=== PATIENT | female | born 1970 | race Hispanic/Latino ===

== ENCOUNTER 2020-06-08 16:55 | Emergency (ER) | payer OTHER, SELFPAY ==
[2020-06-08] MEDS ORDERED: HYDROCODONE/APAP 7.5/325 MG TAB ONE (17:54)
[2020-06-08] MEDS ORDERED: TETANUS & DIPHTHERIA TOX,ADULT 0.5 ML VIAL ONE (17:54)
--- NOTE | 2020-06-08 18:54 | RAD REPORT ---
EXAM DESCRIPTION: RAD - Forearm Right - 06/08/2020 6:31 pm CLINICAL HISTORY: crush injury COMPARISON: No comparisons FINDINGS: No fracture is identified. There is no dislocation or periosteal reaction noted. No foreign body or other soft tissue abnormality. IMPRESSION: Negative right forearm examination.
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
[2020-06-09 05:38] VITALS: TEMP 98.1
[2020-06-09 05:51] VITALS: O2SAT 100
[2020-06-09 05:53] VITALS: BP 155/78
== END 2020-06-08 21:16 | disposition home or self-care (01) ==
LOC: ER 16:55
DX: S50.11XA Contusion of right forearm, initial encounter (principal); W23.0XXA Caught, crushed, jammed, or pinched between moving objects, initial encounter; Y93.9 Activity, unspecified; Y92.9 Unspecified place or not applicable; Z23 Encounter for immunization
CPT/HCPCS: 90471; 90714; 99284; G0390